=== PATIENT | male | born 1980 | race Caucasian/White ===

== ENCOUNTER → 2023-12-04 13:38 | Outpatient (REF) | payer OTHER, SELFPAY | LOC: HWRAD 13:38 | PROVIDERS: ATTENDING PHYSICIAN Urology; FAMILY PHYSICIAN Nurse Practitioner Family | DX: N43.41 Spermatocele of epididymis, single (principal); S39.012A Strain of muscle, fascia and tendon of lower back, initial encounter | CPT/HCPCS: 72110; 72220; 76870; 93976 ==

== ENCOUNTER 2025-04-04 06:00 | Emergency (ER) | payer OTHER, SELFPAY ==
[2025-04-04 06:26] VITALS: BP 115/84
[2025-04-04 06:48] VITALS: BP 126/86
[2025-04-04 07:08] LABS: Hematocrit 49.3 % (39.0-52.0); Hemoglobin 16.9 g/dL (13.0-18.0); Mean Corp Hgb Conc. 34.3 g/dL (33.0-37.0); Mean Corpuscular Volume 86.9 fL (80.0-94.0); Nucleated Red Blood Cells % 0 % (-); Platelet Count 192 10^3/uL (130-400); Red Cell Dist. Width 12.2 % (11.5-14.5)
[2025-04-04 07:16] VITALS: BMI 21.2
[2025-04-04 07:22] LABS: ALT (SGPT) 23 U/L (0-50); AST (SGOT) 20 U/L (17-59); Albumin 4.7 g/dl (3.5-5.0); Alkaline Phosphatase 58 U/L (38-126); Blood Urea Nitrogen 21 mg/dl (9-20); Calcium 9.4 mg/dl (8.4-10.2); Carbon Dioxide 28 mmol/L (22-30); Chloride 103 mmol/L (98-107); Estimated Creatinine Clearance 84 ml/min; Glucose 101 mg/dl (70-99); Magnesium 2.1 mg/dl (1.6-2.3); Potassium 4.0 mmol/L (3.5-5.1); Sodium 137 mmol/L (135-145); Total Protein 7.4 g/dl (6.3-8.2); eGFR > 60.00
--- NOTE | 2025-04-04 07:23 | ED.GENMED ---
History of Present Illness
General
Chief Complaint: Chest Pain
Source: patient
Exam Limitations: none
Time Seen by Provider: 04/04/25 06:36
Nursing documentation reviewed up to this point in time: agreed with
History of Present Illness
History of Present Illness:
45-year-old male presents for chest pressure, onset the past week or so coinciding with the of his due to cancer he witnessed his , sepsis, having flashbacks for that, does have a family history of CAD, no personal history of CAD
does not drink or smoke is not drinking very well no suicidal thoughts, on no meds,
Past History
Past History
ED Past Medical History: None
ED Past Surgical History: None
Social History
Tobacco: Non-smoker
Alcohol: None
Drug: None
Personal:
Living: alone
Employment: Employed
Family History
Family History: CAD
Review of Systems
Review of Systems
All Other Systems: Not applicable
Constitutional: Reports sleep disturbance
EENT: Reports no symptoms
Respiratory: Reports trouble breathing
Cardiac: Reports chest pain
Psychiatric: Reports depression and anxiety; Denies suicidal
Phy Exam
Physical Exam
Physical Exam:
Physical Exam
General: no apparent distress, not acutely ill
Neck: No jaundice
Heart: s1/s2 regular rate and rhythm, no murmur. equal radial pulses.
Lungs: no acute respiratory distress. clear bilaterally
Neuro: alert and oriented. no focal neurological deficits
Skin: no rash
Psychiatric: Flat affect good eye contact, denies suicidal thoughts
Extremities: no edema. no calf tenderness.
Scores
Heart Score for Chest Pain Patients
STEMI patient?: No
History: Slightly or Non-Suspicious
ECG: Normal
Age: </= 45 years
Risk Factors: 1 or 2 Risk Factors
Troponin: </= Normal Limit
Heart Score for Chest Pain Patients: 1
Heart Score Risk: 2.5% MACE over next 6 weeks
Course
Orders/Labs/Results
Orders:
Orders
04/04/25 06:17
EKG [Electrocardiogram (*1)] Urgent
Reason for Study: Chest Pain
EKG- Treatment ONCE
04/04/25 06:52
Crisis Consult Routine
Reason for Consult: depression
04/04/25 06:53
Complete Blood Count/With Diff Urgent
Comprehensive Metabolic Panel Urgent
Magnesium Urgent
NT-proBNP Urgent
Troponin I Urgent
Abnormal Lab Results
04/04/25
06:53
WBC 4.6 L 10^3/uL
(4.8-10.8)
Absolute Lymphs (auto) 0.8 L 10^3/uL
(1.2-3.4)
Lymphocytes % 18.0 L %
(20.5-51.1)
Monocytes % 10.1 H %
(1.7-9.3)
BUN 21 H mg/dl
(9-20)
Glucose 101 H mg/dl
(70-99)
04/04/25 06:53
04/04/25 06:53
Vital Signs
Initial and Last Documented VS:
Initial Vital Signs
Temp Pulse Resp BP Pulse Ox
98.6 F 71 16 115/84 99
04/04/25 06:26 04/04/25 06:26 04/04/25 06:26 04/04/25 06:26 04/04/25 06:26
Last Documented Vital Signs
Temp Pulse Resp BP Pulse Ox
98.6 F 81 13 126/86 98
04/04/25 06:26 04/04/25 06:48 04/04/25 06:48 04/04/25 06:48 04/04/25 07:26
MDM/Problems Addressed
Differential Diagnosis Includes:
Grief anxiety broken heart syndrome Takotsubo
MDM/Problems Addressed:
Chest pain recent loss of loved one
*Pulse Oximetry
SaO2: 98
Oxygen Mode of Delivery: Room air
Patient hypoxic: no
*EKG
Interpreted by ED Provider?: Yes
Interpretation: normal
Comparison EKG: no comparison EKG present
Heart Rate: 78
Rate: normal
Rhythm: sinus
Ischemia: no ischemia
*Control Systems Technician Interpretation
Rate: normal
Interpretation: normal
Rhythm: sinus
*Critical Care Note
Total Time (30-74mins, 75-104mins- exclusive of procedures): Not Applicable
Update Note
Update Note:
Update labs noted patient has been seen by crisis given resources
ED Attending Note
-
Portions of this chart may have been created with voice recognition software.� Occasional wrong word or��sound alike� substitutions may have occurred due to the inherent limitations of voice recognition software.
Discharge Plan
Departure
Referrals:
UNKNOWN - PT DOES,NOT KNOW [Family Provider]
Interventions
Interventions:
*Risk Screen - Suicide Last Done: 04/04/25 06:26
*General Assessment Last Done: 04/04/25 06:26
*Neglect/Abuse Screening Last Done: 04/04/25 06:26
*ED- Fall Risk Assessment Last Done: 04/04/25 06:26
*ED COVID-19 Vaccine History Last Done: 04/04/25 06:26
*ED Influenza Vaccine History Last Done: 04/04/25 06:26
ED- Cardiac Assessment Last Done: 04/04/25 07:16
Discharge Date and Time
Print Language: MALAY
[2025-04-04 07:36] LABS: Troponin I < 0.012 ng/ml
[2025-04-04 08:26] VITALS: BP 135/82
--- NOTE | 2025-04-04 08:26 | EDRN ---
Reviewed discharge instructions with patient. Verbalized understanding. Ambulated with steady gait to the lobby.
== END 2025-04-04 08:20 | disposition home or self-care (01) ==
LOC: EMR 06:00
PROVIDERS: EMERGENCY PHYSICIAN Emergency Medicine
DX: R07.9 Chest pain, unspecified (principal); F43.21 Adjustment disorder with depressed mood; Z82.49 Family history of ischemic heart disease and other diseases of the circulatory system
CPT/HCPCS: 99284; 80053; 83735; 83880; 84484; 85025; 93005